=== PATIENT | male | born 1985 | race Two or more races ===

== ENCOUNTER 2021-02-18 15:04 | Emergency (ER) | payer OTHER ==
[~2021-02-18] VITALS: Ht 180.3 cm; Wt 88.5 kg
[2021-02-18 16:00] VITALS: BP 110/69
[2021-02-18] MEDS ORDERED: SODIUM CHLORIDE 0.9% 1000ML 1,000 ML IV SCH (16:30)
[2021-02-18] MEDS ORDERED: SODIUM CHLORIDE 0.9% 1000ML 1,000 ML ONE (16:52)
[2021-02-18] MEDS ORDERED: IBUPROFEN800 MG PO (17:42)
== END 2021-02-18 18:16 | disposition home or self-care (01) ==
LOC: FSED 15:18
DX: S00.83XA Contusion of other part of head, initial encounter (principal); R51.9 Headache, unspecified; W01.0XXA Fall on same level from slipping, tripping and stumbling without subsequent striking against object, initial encounter; Y93.01 Activity, walking, marching and hiking; Y92.89 Other specified places as the place of occurrence of the external cause; I95.1 Orthostatic hypotension
CPT/HCPCS: 70450; 80048; 80076; 80307; 81003; 82553; 84484; 85025; 85379; 93005; 99283; J7030